=== PATIENT | female | born 1940 | race Caucasian/White ===

== ENCOUNTER → 2017-10-12 | Outpatient (CLI) | payer OTHER ==
[~2017-10-12] MED LIST: DIATR MEGLU/DIATRIZOATE SODIUM 120 ML BTL; DIATRIZOATE MEGLUMINE 300 ML BTL UR
== END | disposition home or self-care (01) ==
LOC: RAD 09:23
DX: K56.609 Unspecified intestinal obstruction, unspecified as to partial versus complete obstruction (principal)
CPT/HCPCS: 74280